=== PATIENT | male | born 1945 | race Caucasian/White ===

== ENCOUNTER 2018-11-04 13:01 | Inpatient (IN) | payer MEDICAID ==
[~2018-11-04] VITALS: Ht 167.6 cm; Wt 51.0 kg
[2018-11-04] MEDS ORDERED: IPRATROPIUM BROMIDE (0.02%) 0.5MG/2.5ML NEB HHN STA (14:19)
[2018-11-04] MEDS ORDERED: ALBUTEROL (0.083%) 2.5MG/3ML NEB HHN STA (14:19)
[2018-11-04] MEDS ORDERED: METHYLPREDNISOLONE SOD SUCC 125 MG/2 ML VIAL IV STA (14:19)
[2018-11-04] MEDS ORDERED: LEVOFLOXACIN 750MG PREMIX 150 ML IV ONE (14:30)
[2018-11-04] MEDS ORDERED: SODIUM CHLORIDE 0.9% 1000ML BAG (SEPSIS BOLUS) IV ONE (14:30)
[2018-11-04] MEDS ORDERED: ASPIRIN 81MG TABLET PO ONE (14:30)
[2018-11-04 15:36] LABS: HEMOGLOBIN. 10.7 g/dL (14.0-18.0); MEAN CORPUSCULAR HEMOGLOBIN 28.7 pg (28.0-32.0); MEAN CORPUSCULAR VOLUME 88.9 fL (80.0-94.0); MEAN PLATELET VOLUME 8.8 fl (7.4-10.4); PLATELET 381 x1000/uL (130-400); RED BLOOD CELL COUNT 3.71 mill/uL (4.7-6.1); RED CELL DISTRIBUTION WIDTH 14.1 % (11.6-14.6)
[2018-11-04 15:38] LABS: CHLORIDE 98 mEq/L (98-107)
[2018-11-04 15:40] LABS: INR 1.2; PARTIAL THROMBOPLASTIN TIME 35.7 sec (23.4-31.0); PROTHROMBIN TIME 12.3 sec (9.1-11.1)
[2018-11-04 16:06] LABS: ATYPICAL LYMPHOCYTES 1; PLATELET ESTIMATE NORMAL
[2018-11-04] MEDS ORDERED: GUAIFENESIN-DM 200MG-20MG/10ML UDC PO PRN (16:30)
[2018-11-04] MEDS ORDERED: ACETAMINOPHEN 325MG TABLET PO PRN (16:30)
[2018-11-04] MEDS ORDERED: ONDANSETRON HCL 4MG/2ML INJ IV PRN (16:30)
[2018-11-04] MEDS ORDERED: IPRATROPIUM/ALBUTEROL 0.5-3(2.5)MG/3ML NEB HHN PRN ×2 (16:30)
[2018-11-04] MEDS ORDERED: OSELTAMIVIR 75MG CAPSULE PO ONE (17:00)
[2018-11-04] MEDS ORDERED: ACETYLCYSTEINE 100MG/ML 10% VIAL 4ML INH NR (17:08)
[2018-11-04 17:10] LABS: BG BASE EXCESS -4.3 mmol/L (-2.0-2.0); BG CARBOXYHEMOGLOBIN 0.1 % (0.5-1.5); BG DEOXYHEMOGLOBIN 4.7 % (0.0-5.0); BG FRACTION INSPIRED OXYGEN 21; BG HCO3 ACT 20.4 mmol/L (22.0-26.0); BG METHEMOGLOBIN 0.1 % (0.0-1.5); BG OXYGEN SATURATION 95.3 % (92.0-98.5); BG OXYHEMOGLOBIN 95.1 % (94.0-97.0); BG PCO2 35.7 mmHg (35.0-45.0); BG PH 7.374 (7.350-7.450); BG PO2 81.6 mmHg (75.0-100.0); BG SAMPLE SITE RIGHT BRACHIAL; BG TOTAL HEMOGLOBIN 10.6 g/dL (12.0-18.0); BG VENT MODE ROOM AIR
[2018-11-04 18:29] LABS: PROSTRATE SPECIFIC AG TOTAL 2.44 ng/mL (0.0-4.0)
[2018-11-04 18:43] LABS: CLARITY URINE CLEAR (CLEAR); COLOR URINE YELLOW (YELLOW); KETONES URINE NEGATIVE (NEGATIVE); LEUKOCYTE ESTERASE URINE NEGATIVE (NEGATIVE); NITRITE URINE NEGATIVE (NEGATIVE); OCCULT BLOOD URINE TRACE (NEGATIVE); PH URINE 5.5 (4.5-8.0); PROTEIN URINE NEGATIVE (NEGATIVE); SPECIFIC GRAVITY URINE 1.005 (1.005-1.030)
[2018-11-04 18:44] LABS: CARCINO EMBRYONIC ANTIGEN < 0.5 ng/ml
[2018-11-04 18:57] VITALS: BP 133/86
[2018-11-04 20:00] VITALS: BP 122/44
[2018-11-04] MEDS ORDERED: ENOXAPARIN 30MG/0.3ML SYR SUBCUT SCH (20:00)
[2018-11-04] MEDS ORDERED: CEFTRIAXONE 1,000 MG in DEXTROSE 5% WATER 50 ML IV SCH (20:00)
[2018-11-04] MEDS ORDERED: SODIUM CHLORIDE 10% FOR INH 15ML VIAL NEB INH SCH (21:00)
[2018-11-04] MEDS ORDERED: AZITHROMYCIN 500 MG in DEXT 5% WATER 250 ML IV SCH (21:00)
[2018-11-04] MEDS: SODIUM CHLORIDE 0.45% 1,000 ML IV SCH (21:44)
[2018-11-04] MEDS: METHYLPREDNISOLONE SOD SUCC 40 MG/ML VIAL IV SCH (21:53)
[2018-11-04] MEDS: GUAIFENESIN 600MG ER TABLET PO SCH (21:55)
[2018-11-05] VITALS: BP 138/59
[2018-11-05] MEDS: IPRATROPIUM/ALBUTEROL 0.5-3(2.5)MG/3ML NEB HHN SCH ×7 (00:01→21:03)
[2018-11-05 04:00] VITALS: BP 144/53
[2018-11-05] MEDS: METHYLPREDNISOLONE SOD SUCC 40 MG/ML VIAL IV SCH ×3 (04:50→21:19)
[2018-11-05 07:46] LABS: CHLORIDE 103 mEq/L (98-107)
[2018-11-05 08:00] VITALS: BP 127/52
[2018-11-05] MEDS: BUDESONIDE 0.5MG/2ML NEB HHN SCH ×3 (08:08→21:04)
[2018-11-05] MEDS: GUAIFENESIN 600MG ER TABLET PO SCH ×2 (09:11→21:19)
[2018-11-05 09:44] LABS: BASOPHILS % 0.3 % (0.0-2.0); EOSINOPHILS % 0.1 % (0.0-5.0); HEMATOCRIT. 31.9 % (42.0-52.0); HEMOGLOBIN. 10.3 g/dL (14.0-18.0); LYMPHOCYTES % 12.1 % (20.0-50.0); MEAN CORPUSCULAR VOLUME 89.5 fL (80.0-94.0); MEAN PLATELET VOLUME 8.7 fl (7.4-10.4); MONOCYTES % 2.9 % (2.0-8.0); NEUTROPHILS % 84.6 % (40.0-76.0); PLATELET 364 x1000/uL (130-400); RED BLOOD CELL COUNT 3.56 mill/uL (4.7-6.1); RED CELL DISTRIBUTION WIDTH 13.7 % (11.6-14.6)
[2018-11-05 12:00] VITALS: BP 127/54
[2018-11-05] MEDS: SODIUM CHLORIDE 0.45% 1,000 ML IV SCH ×2 (12:27→22:27)
[2018-11-05] MEDS: ACETYLCYSTEINE 100MG/ML 10% VIAL 4ML INH SCH (15:50)
[2018-11-05 16:00] VITALS: BP 110/45
[2018-11-05 20:00] VITALS: BP 115/51
[2018-11-05] MEDS ORDERED: CEFTRIAXONE 1 G PREMIX 50 ML IV SCH (21:00)
[2018-11-05] MEDS ORDERED: AZITHROMYCIN 500MG in DEXTROSE 5% WATER 250ML IV SCH (22:00)
[2018-11-06] VITALS: BP 126/62
[2018-11-06] MEDS: IPRATROPIUM/ALBUTEROL 0.5-3(2.5)MG/3ML NEB HHN SCH ×4 (01:05→11:44)
[2018-11-06 04:00] VITALS: BP 130/55
[2018-11-06] MEDS: ACETYLCYSTEINE 100MG/ML 10% VIAL 4ML INH SCH ×2 (04:48→07:30)
[2018-11-06] MEDS: METHYLPREDNISOLONE SOD SUCC 40 MG/ML VIAL IV SCH (05:15)
[2018-11-06 06:58] LABS: HEMATOCRIT. 31.3 % (42.0-52.0); MEAN CORPUSCULAR HEMOGLOBIN 28.3 pg (28.0-32.0); MEAN CORPUSCULAR VOLUME 88.4 fL (80.0-94.0); MEAN PLATELET VOLUME 8.9 fl (7.4-10.4); PLATELET 407 x1000/uL (130-400); RED BLOOD CELL COUNT 3.54 mill/uL (4.7-6.1); RED CELL DISTRIBUTION WIDTH 14.1 % (11.6-14.6)
[2018-11-06] MEDS: BUDESONIDE 0.5MG/2ML NEB HHN SCH (07:30)
[2018-11-06 07:41] LABS: CHLORIDE 104 mEq/L (98-107)
[2018-11-06 08:01] VITALS: BP 129/55
[2018-11-06] MEDS ORDERED: POTASSIUM CHLORIDE 20MEQ TABLET SR PO SCH (08:30)
[2018-11-06] MEDS: GUAIFENESIN 600MG ER TABLET PO SCH (08:52)
[2018-11-06] MEDS ORDERED: FENTANYL CITRATE/PF 50MCG/ML 2ML VIAL ONE (09:27)
[2018-11-06] MEDS ORDERED: SODIUM BICARBONATE 4% (2.4MEQ) 5ML VIAL IV ONE ×2 (09:36→09:39)
[2018-11-06] MEDS ORDERED: LIDOCAINE HCL 1% 20ML VIAL (Pyxis) INJ ONE (09:37)
[2018-11-06] MEDS ORDERED: LEVOFLOXACIN 500MG TABLET PO SCH (11:00)
[2018-11-06] MEDS: SODIUM CHLORIDE 0.45% 1,000 ML IV SCH (11:30)
[2018-11-06 11:40] VITALS: BP 129/54
[2018-11-06] MEDS ORDERED: AZIT500T5 MT (12:14)
[2018-11-06] MEDS ORDERED: DEXT15SY3 PO (12:14)
[2018-11-06 13:23] VITALS: BP 129/59
[2018-11-06 19:04] LABS: PLATELET ESTIMATE INCREASED
== END 2018-11-06 15:06 | disposition home or self-care (01) | DRG 720 ==
LOC: ER 13:01 → 6WST 16:06 → EDBEDREQSVC 16:17 → EDBEDREQ 16:17 → EDBEDREQTM 16:17 → CANRESERV 16:39 → ENRESERV 16:39
PROVIDERS: ADMIT Internal Medicine; ATTEND Internal Medicine
DX: A41.9 Sepsis, unspecified organism (principal); J96.00 Acute respiratory failure, unspecified whether with hypoxia or hypercapnia; E43 Unspecified severe protein-calorie malnutrition; N17.0 Acute kidney failure with tubular necrosis; E87.2 Acidosis; J18.1 Lobar pneumonia, unspecified organism; D64.9 Anemia, unspecified; R91.8 Other nonspecific abnormal finding of lung field; J06.9 Acute upper respiratory infection, unspecified; J43.9 Emphysema, unspecified; I10 Essential (primary) hypertension; M41.9 Scoliosis, unspecified; Z68.1 Body mass index [BMI] 19.9 or less, adult; Z87.891 Personal history of nicotine dependence
CPT/HCPCS: 32405; 36415; 36600; 71045; 71250; 77012; 80048; 80061; 82105; 82375; 82378; 82805; 83036; 83605; 83880; 84145; 84153; 84443; 84484; 86301; 87070; 87804; 88108; 88312; 93005; 94640; 94644; 96374; 99285; J0456; J0696; J1650; J1956; J2920; J2930; J3010; J3490; J7030; J7060; J7131; J7608; J7611; J7620; J7626; G0103

== ENCOUNTER 2018-12-09 12:19 | Inpatient (IN) | payer MEDICAID ==
[~2018-12-09] VITALS: Ht 167.6 cm; Wt 48.2 kg
[~2018-12-09 12:19] MED LIST: AZIT500T5 MT; DEXT15SY3 PO
[2018-12-09] MEDS ORDERED: ONDANSETRON HCL 4MG/2ML INJ IV STA (17:49)
[2018-12-09] MEDS ORDERED: IBUPROFEN 600MG TABLET PO STA (17:49)
[2018-12-09] MEDS ORDERED: FAMOTIDINE 20MG/2ML VIAL IV STA (17:49)
[2018-12-09 18:41] LABS: CHLORIDE 98 mEq/L (98-107); INR 1.3; PROTHROMBIN TIME 13.1 sec (9.1-11.1)
[2018-12-09 18:42] LABS: HEMATOCRIT. 31.7 % (42.0-52.0); MEAN CORPUSCULAR HEMOGLOBIN 26.6 pg (28.0-32.0); MEAN CORPUSCULAR VOLUME 84.4 fL (80.0-94.0); MEAN PLATELET VOLUME 8.7 fl (7.4-10.4); PLATELET 401 x1000/uL (130-400); RED BLOOD CELL COUNT 3.75 mill/uL (4.7-6.1); RED CELL DISTRIBUTION WIDTH 15.7 % (11.6-14.6)
[2018-12-09] MEDS ORDERED: MORPHINE SULFATE 4 MG/ML CPJ (NOT FOR IM USE) IV STA (19:13)
[2018-12-09 19:18] LABS: PLATELET ESTIMATE INCREASED
[2018-12-09 19:35] LABS: CLARITY URINE CLOUDY (CLEAR); COLOR URINE DARK YELLOW (YELLOW); KETONES URINE TRACE (NEGATIVE); LEUKOCYTE ESTERASE URINE NEGATIVE (NEGATIVE); NITRITE URINE NEGATIVE (NEGATIVE); OCCULT BLOOD URINE NEGATIVE (NEGATIVE); PH URINE 5.5 (4.5-8.0); PROTEIN URINE 2+ (NEGATIVE); SPECIFIC GRAVITY URINE 1.028 (1.005-1.030)
[2018-12-09] MEDS ORDERED: SODIUM CHLORIDE 0.9% 1,000 ML IV ONE (19:45)
[2018-12-09] MEDS ORDERED: ALBUTEROL (0.083%) 2.5MG/3ML NEB HHN STA (19:45)
[2018-12-09] MEDS ORDERED: ACETAMINOPHEN 325MG TABLET PO PRN (20:30)
[2018-12-09] MEDS ORDERED: VANCOMYCIN 1 G PREMIX 200 ML IV SCH (20:45)
[2018-12-09] MEDS ORDERED: CEFTRIAXONE 1 G PREMIX 50 ML IV NR (20:45)
[2018-12-09] MEDS ORDERED: AZITHROMYCIN 500 MG in DEXT 5% WATER 250 ML IV SCH (20:45)
[2018-12-10] VITALS (7 sets, daily range): BP systolic 125–142; BP diastolic 38–63
[2018-12-10] MEDS ORDERED: FLUT1BLS IH (01:05)
[2018-12-10] MEDS ORDERED: TIOT18CA3 IH (01:05)
[2018-12-10] MEDS: DEXT 5%/0.45% NACL 1000ML 1,000 ML IV SCH ×2 (02:03→13:33)
[2018-12-10] MEDS: ENOXAPARIN 40MG/0.4ML SYR SUBCUT SCH (08:33)
[2018-12-10] MEDS: PANTOPRAZOLE SODIUM 40 MG/VIAL IV SCH (08:33)
[2018-12-10 13:22] LABS: HEMATOCRIT 30.3 % (42.0-52.0); HEMOGLOBIN 9.4 g/dL (14.0-18.0); MEAN CORPUSCULAR HEMOGLOBIN 26.3 pg (28.0-32.0); MEAN CORPUSCULAR VOLUME 84.4 fL (80.0-94.0); PLATELET 409 x1000/uL (130-400); RED BLOOD CELL COUNT 3.59 mill/uL (4.7-6.1)
[2018-12-10 13:41] LABS: CHLORIDE 104 mEq/L (98-107)
[2018-12-10] MEDS ORDERED: HYDROCODONE/ACETAMINOPHEN 5/325MG TABLET PO PRN (17:45)
[2018-12-10] MEDS ORDERED: DIPHENHYDRAMINE 50MG/ML VIAL IV PRN (17:45)
[2018-12-10] MEDS ORDERED: HYDRALAZINE 20MG/ML VIAL IV PRN (17:45)
[2018-12-10] MEDS ORDERED: ONDANSETRON 4MG ODT PO PRN (17:45)
[2018-12-10] MEDS ORDERED: DOCUSATE SODIUM 100MG CAPSULE PO PRN (17:45)
[2018-12-10 17:49] LABS: BG BASE EXCESS 1.8 mmol/L (-2.0-2.0); BG CARBOXYHEMOGLOBIN 0.2 % (0.5-1.5); BG DEOXYHEMOGLOBIN 13.2 % (0.0-5.0); BG FRACTION INSPIRED OXYGEN 21; BG HCO3 ACT 25.6 mmol/L (22.0-26.0); BG METHEMOGLOBIN 0.3 % (0.0-1.5); BG OXYGEN SATURATION 86.7 % (92.0-98.5); BG OXYHEMOGLOBIN 86.3 % (94.0-97.0); BG PCO2 37.1 mmHg (35.0-45.0); BG PH 7.457 (7.350-7.450); BG PO2 54.2 mmHg (75.0-100.0); BG SAMPLE SITE LEFT BRACHIAL; BG TOTAL HEMOGLOBIN 9.4 g/dL (12.0-18.0); BG VENT MODE ROOM AIR
[2018-12-10] MEDS: METHYLPREDNISOLONE SOD SUCC 40 MG/ML VIAL IV SCH (18:41)
[2018-12-10 19:00] LABS: *AMPHETAMINES SCREEN URINE NEGATIVE (NEGATIVE); *BARBITURATES SCREEN URINE NEGATIVE (NEGATIVE); *BENZODIAZEPINES SCREEN URINE PRESUMTIVE POSITIVE (NEGATIVE); *COCAINE SCREEN URINE NEGATIVE (NEGATIVE)
[2018-12-10 19:01] LABS: METHADONE URINE SCREEN NEGATIVE (NEGATIVE); OPIATES URINE SCREEN NEGATIVE (NEGATIVE); PHENCYCLIDINE URINE SCREEN NEGATIVE (NEGATIVE)
[2018-12-10 19:02] LABS: CANNABINOID URINE SCREEN NEGATIVE (NEGATIVE)
[2018-12-10] MEDS ORDERED: VANCOMYCIN 1250MG in DEXTROSE 5% WATER 250ML IV NR (20:00)
[2018-12-10] MEDS: PIPERACILLIN/TAZ 3.375G PREMIX 50 ML IV SCH (20:46)
[2018-12-10] MEDS: IPRATROPIUM/ALBUTEROL 0.5-3(2.5)MG/3ML NEB HHN SCH (21:57)
[2018-12-10] MEDS: BUDESONIDE 0.5MG/2ML NEB HHN SCH (21:58)
[2018-12-11] VITALS: BP 147/57
[2018-12-11] MEDS: IPRATROPIUM/ALBUTEROL 0.5-3(2.5)MG/3ML NEB HHN SCH ×4 (00:52→13:24)
[2018-12-11] MEDS: METHYLPREDNISOLONE SOD SUCC 40 MG/ML VIAL IV SCH ×3 (01:16→17:49)
[2018-12-11] MEDS: PIPERACILLIN/TAZ 3.375G PREMIX 50 ML IV SCH ×4 (01:16→21:42)
[2018-12-11] MEDS: DEXT 5%/0.45% NACL 1000ML 1,000 ML IV SCH (01:16)
[2018-12-11 04:00] VITALS: BP 126/45
[2018-12-11] MEDS: VANCOMYCIN 750 MG PREMIX 150 ML IV SCH ×2 (06:00→18:51)
[2018-12-11] MEDS: BUDESONIDE 0.5MG/2ML NEB HHN SCH (07:29)
[2018-12-11 07:38] LABS: HEMATOCRIT 29.4 % (42.0-52.0); HEMOGLOBIN 9.1 g/dL (14.0-18.0); MEAN CORPUSCULAR HEMOGLOBIN 26.5 pg (28.0-32.0); MEAN CORPUSCULAR VOLUME 85.3 fL (80.0-94.0); PLATELET 398 x1000/uL (130-400); RED BLOOD CELL COUNT 3.45 mill/uL (4.7-6.1); RED CELL DISTRIBUTION WIDTH 16.1 % (11.6-14.6)
[2018-12-11 08:07] LABS: CHLORIDE 103 mEq/L (98-107)
[2018-12-11 08:26] LABS: LDL CHOLESTEROL 75 mg/dL (5-100)
[2018-12-11 08:30] LABS: HDL CHOLESTEROL 27 mg/dL (40-59)
[2018-12-11] MEDS: ASPIRIN 81MG TABLET PO SCH (08:59)
[2018-12-11] MEDS: PANTOPRAZOLE SODIUM 40 MG/VIAL IV SCH (08:59)
[2018-12-11] MEDS: ENOXAPARIN 40MG/0.4ML SYR SUBCUT SCH (08:59)
[2018-12-11 12:20] VITALS: BP 168/71
[2018-12-11 16:04] VITALS: BP 128/58
[2018-12-11 20:00] VITALS: BP 144/57
[2018-12-12] VITALS: BP 117/36
[2018-12-12] MEDS: BUDESONIDE 0.5MG/2ML NEB HHN SCH ×3 (00:07→21:05)
[2018-12-12] MEDS: IPRATROPIUM/ALBUTEROL 0.5-3(2.5)MG/3ML NEB HHN SCH ×6 (00:07→21:04)
[2018-12-12] MEDS: PIPERACILLIN/TAZ 3.375G PREMIX 50 ML IV SCH ×4 (01:46→20:13)
[2018-12-12] MEDS: METHYLPREDNISOLONE SOD SUCC 40 MG/ML VIAL IV SCH ×4 (01:46→18:44)
[2018-12-12 04:00] VITALS: BP 142/59
[2018-12-12] MEDS: VANCOMYCIN 750 MG PREMIX 150 ML IV SCH (06:10)
[2018-12-12 06:19] LABS: HEMATOCRIT 27.3 % (42.0-52.0); HEMOGLOBIN 8.6 g/dL (14.0-18.0); MEAN CORPUSCULAR HEMOGLOBIN 26.5 pg (28.0-32.0); MEAN CORPUSCULAR VOLUME 84.4 fL (80.0-94.0); PLATELET 414 x1000/uL (130-400); RED BLOOD CELL COUNT 3.24 mill/uL (4.7-6.1); RED CELL DISTRIBUTION WIDTH 16.1 % (11.6-14.6)
[2018-12-12 06:30] LABS: CHLORIDE 107 mEq/L (98-107)
[2018-12-12 08:00] VITALS: BP 164/76
[2018-12-12] MEDS: PANTOPRAZOLE SODIUM 40 MG/VIAL IV SCH (09:00)
[2018-12-12] MEDS: ENOXAPARIN 40MG/0.4ML SYR SUBCUT SCH (09:43)
[2018-12-12] MEDS: ASPIRIN 81MG TABLET PO SCH (09:43)
[2018-12-12 12:00] VITALS: BP 158/54
[2018-12-12 15:34] LABS: HEMATOCRIT 28.6 % (42.0-52.0); HEMOGLOBIN 8.7 g/dL (14.0-18.0); MEAN CORPUSCULAR HEMOGLOBIN 25.7 pg (28.0-32.0); MEAN CORPUSCULAR VOLUME 84.8 fL (80.0-94.0); PLATELET 450 x1000/uL (130-400); RED BLOOD CELL COUNT 3.37 mill/uL (4.7-6.1)
[2018-12-12 16:00] VITALS: BP 132/55
[2018-12-12] MEDS: VANCOMYCIN 500 MG PREMIX 100 ML IV SCH (18:44)
[2018-12-12 20:00] VITALS: BP 136/44
[2018-12-13] VITALS: BP 128/33
[2018-12-13] MEDS: IPRATROPIUM/ALBUTEROL 0.5-3(2.5)MG/3ML NEB HHN SCH ×5 (00:51→16:06)
[2018-12-13] MEDS: PIPERACILLIN/TAZ 3.375G PREMIX 50 ML IV SCH ×3 (02:08→14:28)
[2018-12-13] MEDS: VANCOMYCIN 500 MG PREMIX 100 ML IV SCH ×2 (02:47→10:35)
[2018-12-13 04:00] VITALS: BP 144/52
[2018-12-13] MEDS: METHYLPREDNISOLONE SOD SUCC 40 MG/ML VIAL IV SCH (05:05)
[2018-12-13 06:33] LABS: HEMATOCRIT 28.2 % (42.0-52.0); HEMOGLOBIN 8.8 g/dL (14.0-18.0); MEAN CORPUSCULAR HEMOGLOBIN 26.2 pg (28.0-32.0); MEAN CORPUSCULAR VOLUME 84.5 fL (80.0-94.0); PLATELET 441 x1000/uL (130-400); RED BLOOD CELL COUNT 3.34 mill/uL (4.7-6.1); RED CELL DISTRIBUTION WIDTH 16.3 % (11.6-14.6)
[2018-12-13 07:11] LABS: CHLORIDE 107 mEq/L (98-107)
[2018-12-13 08:00] VITALS: BP 155/50
[2018-12-13] MEDS: BUDESONIDE 0.5MG/2ML NEB HHN SCH (08:16)
[2018-12-13] MEDS: PANTOPRAZOLE SODIUM 40 MG/VIAL IV SCH (08:37)
[2018-12-13] MEDS: ENOXAPARIN 40MG/0.4ML SYR SUBCUT SCH (08:37)
[2018-12-13] MEDS: ASPIRIN 81MG TABLET PO SCH (08:37)
[2018-12-13 12:00] VITALS: BP 142/53
[2018-12-13 16:00] VITALS: BP_SYST 133; BP_SYST 99; BP_DIAS 51; BP_DIAS 61
[2018-12-13] MEDS ORDERED: POTASSIUM CHLORIDE 20MEQ TABLET SR PO NR ×2 (16:30→18:00)
[2018-12-13] MEDS ORDERED: MAGNESIUM 1 G PREMIX 100 ML IV PRN (17:00)
[2018-12-13 17:01] VITALS: BP 133/51
== END 2018-12-13 18:00 | disposition home or self-care (01) | DRG 139 ==
LOC: ER 12:19 → 5WST 19:43 → EDBEDREQTM 19:47 → EDBEDREQ 19:47 → CANRESERV 22:58 → ENRESERV 22:58
PROVIDERS: ADMIT Internal Medicine; ATTEND Internal Medicine
DX: J18.9 Pneumonia, unspecified organism (principal); J96.90 Respiratory failure, unspecified, unspecified whether with hypoxia or hypercapnia; E43 Unspecified severe protein-calorie malnutrition; D69.6 Thrombocytopenia, unspecified; D64.9 Anemia, unspecified; Z99.81 Dependence on supplemental oxygen; J44.0 Chronic obstructive pulmonary disease with (acute) lower respiratory infection; J44.1 Chronic obstructive pulmonary disease with (acute) exacerbation; I10 Essential (primary) hypertension; H40.9 Unspecified glaucoma; R80.9 Proteinuria, unspecified; T38.0X5A Adverse effect of glucocorticoids and synthetic analogues, initial encounter; R73.9 Hyperglycemia, unspecified; Y92.89 Other specified places as the place of occurrence of the external cause; Z79.899 Other long term (current) drug therapy; Z87.891 Personal history of nicotine dependence
CPT/HCPCS: 36415; 36600; 71045; 71250; 74176; 80048; 80061; 80202; 80305; 82375; 82805; 83036; 83735; 83880; 84443; 84484; 85027; 87070; 87804; 93005; 93306; 94640; 96361; 96374; 96375; 97161; 99285; C9113; J0456; J0696; J1650; J2405; J2543; J2920; J3370; J3490; J7030; J7040; J7060; J7611; J7620; J7626

== ENCOUNTER 2019-01-06 23:31 | Inpatient (IN) | payer MEDICAID ==
[~2019-01-06] VITALS: Ht 167.6 cm; Wt 57.6 kg
[~2019-01-06 23:31] MED LIST changes: +FLUT1BLS IH; +TIOT18CA3 IH
[2019-01-07] MEDS ORDERED: ACETAMINOPHEN 325MG TABLET PO STA (00:05)
[2019-01-07] MEDS ORDERED: ONDANSETRON HCL 4MG/2ML INJ IV STA (00:05)
[2019-01-07] MEDS ORDERED: PIPERACILLIN/TAZ 3.375G PREMIX 50 ML IV ONE (00:15)
[2019-01-07] MEDS ORDERED: VANCOMYCIN 1 G PREMIX 200 ML IV ONE (00:15)
[2019-01-07] MEDS ORDERED: SODIUM CHLORIDE 0.9% 1000ML BAG (SEPSIS BOLUS) IV ONE (00:15)
[2019-01-07] MEDS ORDERED: ACETAMINOPHEN 650MG SUPP PR ONE (00:30)
[2019-01-07] MEDS ORDERED: OLANZAPINE 10 MG/VIAL IM ONE (00:30)
[2019-01-07 01:30] LABS: CHLORIDE 95 mEq/L (98-107)
[2019-01-07 01:35] LABS: BASOPHILS % 0.5 % (0.0-2.0); EOSINOPHILS % 0.4 % (0.0-5.0); HEMATOCRIT. 26.1 % (42.0-52.0); HEMOGLOBIN. 8.4 g/dL (14.0-18.0); LYMPHOCYTES % 10.6 % (20.0-50.0); MEAN CORPUSCULAR HEMOGLOBIN 26.5 pg (28.0-32.0); MEAN CORPUSCULAR VOLUME 81.9 fL (80.0-94.0); MEAN PLATELET VOLUME 8.2 fl (7.4-10.4); NEUTROPHILS % 81.5 % (40.0-76.0); PLATELET 478 x1000/uL (130-400); RED BLOOD CELL COUNT 3.19 mill/uL (4.7-6.1); RED CELL DISTRIBUTION WIDTH 17.5 % (11.6-14.6)
[2019-01-07 01:40] LABS: INR 1.3; PROTHROMBIN TIME 13.3 sec (9.1-11.1)
[2019-01-07 02:49] LABS: CLARITY URINE CLEAR (CLEAR); COLOR URINE YELLOW (YELLOW); KETONES URINE NEGATIVE (NEGATIVE); LEUKOCYTE ESTERASE URINE NEGATIVE (NEGATIVE); NITRITE URINE NEGATIVE (NEGATIVE); OCCULT BLOOD URINE 2+ (NEGATIVE); PH URINE 8.5 (4.5-8.0); PROTEIN URINE TRACE (NEGATIVE); SPECIFIC GRAVITY URINE 1.013 (1.005-1.030); UROBILINOGEN URINE 0.2 E.U./dL (0.2-1.0)
[2019-01-07] MEDS ORDERED: POTASSIUM CHLORIDE 20MEQ TABLET SR PO NR (08:30)
[2019-01-07] MEDS ORDERED: CLONIDINE 0.1MG TABLET PO PRN (08:30)
[2019-01-07] MEDS ORDERED: GUAIFENESIN-DM 200MG-20MG/10ML UDC PO PRN (08:30)
[2019-01-07] MEDS ORDERED: BUDESONIDE 0.5MG/2ML NEB HHN SCH (08:30)
[2019-01-07] MEDS ORDERED: ONDANSETRON HCL 4MG/2ML INJ IV PRN (08:30)
[2019-01-07] MEDS ORDERED: ACETAMINOPHEN 325MG TABLET PO PRN (08:30)
[2019-01-07] MEDS ORDERED: IPRATROPIUM/ALBUTEROL 0.5-3(2.5)MG/3ML NEB HHN PRN (08:30)
[2019-01-07] MEDS ORDERED: GUAIFENESIN 600MG ER TABLET PO SCH (09:00)
[2019-01-07 09:12] LABS: TOTAL IRON BINDING CAPACITY 99 ug/dL (250-450)
[2019-01-07] MEDS ORDERED: PIPERACILLIN/TAZ 3.375G PREMIX 50 ML IV SCH (10:45)
[2019-01-07] MEDS ORDERED: PIPERACILLIN/TAZ 3.375G PREMIX 50 ML IV NR ×2 (10:45→23:15)
[2019-01-07] MEDS: DEXT 5%/0.45% NACL 1000ML 1,000 ML IV SCH ×2 (11:38→21:50)
[2019-01-07] MEDS ORDERED: SODIUM CHLORIDE 10% FOR INH 15ML VIAL NEB INH SCH (17:00)
[2019-01-07] MEDS: IPRATROPIUM/ALBUTEROL 0.5-3(2.5)MG/3ML NEB HHN SCH (20:10)
[2019-01-08] VITALS (11 sets, daily range): BP systolic 120–147; BP diastolic 49–102
[2019-01-08] MEDS: IPRATROPIUM/ALBUTEROL 0.5-3(2.5)MG/3ML NEB HHN SCH ×6 (00:05→21:38)
[2019-01-08] MEDS ORDERED: VANCOMYCIN 500 MG PREMIX 100 ML IV NR (03:30)
[2019-01-08 05:21] LABS: EOSINOPHILS % 3.9 % (0.0-5.0); HEMATOCRIT. 27.8 % (42.0-52.0); HEMOGLOBIN. 8.7 g/dL (14.0-18.0); LYMPHOCYTES % 20.1 % (20.0-50.0); MEAN CORPUSCULAR HEMOGLOBIN 25.8 pg (28.0-32.0); MEAN CORPUSCULAR VOLUME 82.6 fL (80.0-94.0); MEAN PLATELET VOLUME 7.5 fl (7.4-10.4); MONOCYTES % 9.9 % (2.0-8.0); NEUTROPHILS % 65.1 % (40.0-76.0); PLATELET 417 x1000/uL (130-400); RED BLOOD CELL COUNT 3.36 mill/uL (4.7-6.1); RED CELL DISTRIBUTION WIDTH 17.2 % (11.6-14.6)
[2019-01-08 05:22] LABS: CHLORIDE 104 mEq/L (98-107)
[2019-01-08] MEDS: ACETYLCYSTEINE 100MG/ML 10% VIAL 4ML INH SCH ×2 (06:00→12:57)
[2019-01-08] MEDS ORDERED: PIPERACILLIN/TAZ 3.375G PREMIX 50 ML IV SCH (12:00)
[2019-01-08] MEDS: PIPERACILLIN/TAZ 3.375G PREMIX 50 ML IV SCH ×2 (14:34→20:29)
[2019-01-08] MEDS ORDERED: MONTELUKAST SODIUM 10MG TABLET PO SCH (17:00)
[2019-01-08] MEDS ORDERED: BUDESONIDE 0.5MG/2ML NEB HHN SCH (21:00)
[2019-01-08] MEDS: VANCOMYCIN 1 G PREMIX 200 ML IV SCH (21:33)
[2019-01-09] MEDS: PIPERACILLIN/TAZ 3.375G PREMIX 50 ML IV SCH ×3 (01:50→13:41)
[2019-01-09 04:00] VITALS: BP 151/60
[2019-01-09 07:49] LABS: BASOPHILS % 0.9 % (0.0-2.0); EOSINOPHILS % 3.7 % (0.0-5.0); HEMOGLOBIN. 8.3 g/dL (14.0-18.0); LYMPHOCYTES % 13.9 % (20.0-50.0); MEAN CORPUSCULAR HEMOGLOBIN 25.6 pg (28.0-32.0); MEAN CORPUSCULAR VOLUME 83.4 fL (80.0-94.0); MEAN PLATELET VOLUME 8.2 fl (7.4-10.4); MONOCYTES % 9.4 % (2.0-8.0); NEUTROPHILS % 72.1 % (40.0-76.0); PLATELET 427 x1000/uL (130-400); RED BLOOD CELL COUNT 3.24 mill/uL (4.7-6.1); RED CELL DISTRIBUTION WIDTH 17.2 % (11.6-14.6)
[2019-01-09 07:59] LABS: CHLORIDE 108 mEq/L (98-107)
[2019-01-09 08:00] VITALS: BP 147/66
[2019-01-09] MEDS: ACETYLCYSTEINE 100MG/ML 10% VIAL 4ML INH SCH (10:00)
[2019-01-09] MEDS: IPRATROPIUM/ALBUTEROL 0.5-3(2.5)MG/3ML NEB HHN SCH ×2 (10:01→13:30)
[2019-01-09] MEDS: VANCOMYCIN 1 G PREMIX 200 ML IV SCH (10:07)
[2019-01-09] MEDS ORDERED: ENOXAPARIN 40MG/0.4ML SYR SUBCUT SCH (11:00)
[2019-01-09 14:25] VITALS: BP 135/59
== END 2019-01-09 16:56 | disposition home or self-care (01) | DRG 720 ==
LOC: ER 23:31 → 5EST 01-07 04:08 → EDBEDREQTM 01-07 04:20 → EDBEDREQ 01-07 04:20 → ENRESERV 01-08 08:05 → 6WST 01-08 23:32 → 8WST 01-09 00:07
PROVIDERS: ADMIT Internal Medicine; ATTEND Internal Medicine
DX: A41.9 Sepsis, unspecified organism (principal); J96.00 Acute respiratory failure, unspecified whether with hypoxia or hypercapnia; E43 Unspecified severe protein-calorie malnutrition; J18.1 Lobar pneumonia, unspecified organism; D64.9 Anemia, unspecified; E87.8 Other disorders of electrolyte and fluid balance, not elsewhere classified; Z99.81 Dependence on supplemental oxygen; E87.1 Hypo-osmolality and hyponatremia; E87.6 Hypokalemia; J43.9 Emphysema, unspecified; M41.9 Scoliosis, unspecified; I10 Essential (primary) hypertension; Z87.01 Personal history of pneumonia (recurrent); Z87.891 Personal history of nicotine dependence; Z68.20 Body mass index [BMI] 20.0-20.9, adult
CPT/HCPCS: 36415; 71045; 71250; 80048; 80202; 80307; 80329; 82728; 83540; 83550; 83605; 83930; 84145; 84484; 87070; 87804; 92610; 93005; 94640; 96365; 96375; 97116; 97162; 99284; 99291; J1650; J2405; J2543; J3370; J3490; J7030; J7050; J7131; J7608; J7620; J7626